=== PATIENT | male | born 1945 | race Caucasian/White ===

== ENCOUNTER 2024-06-13 22:12 | Emergency (ER) | payer MEDICARE, BC, SELFPAY ==
[2024-06-13 22:20] VITALS: BP 181/92; PULSE 74; RESP 19; TEMP 36.8; O2SAT 96; BMI 31.6
--- NOTE | 2024-06-13 22:51 | XR_ITS ---
Examination: Foot, right, 3 views Technique: AP, oblique, lateral views foot, 3 views Date and time of exam: June 13, 2024 11:02 PM INDICATIONS: Patient fell today with injury to the foot, laceration to the left foot FINDINGS: Prominent osteopenia Soft tissue vascular calcification No acute fracture No foreign body Moderate narrowing first metatarsal phalangeal joint Significant osteoarthritis tarsometatarsal joints IMPRESSION: No opaque foreign body
--- NOTE | 2024-06-13 22:52 | PD.EDRME ---
Rapid Medical Screening Exam RME Arrival date/time: 06/13/24 22:12 79-year-old male past medical history of hypertension, hyperlipidemia, thyroid disease, neuropathy and peripheral vascular disease presents emergency department complaining of laceration to right foot after suffering ground-level fall due to slipping on tile. Patient is unsure if he is up-to-date with tetanus vaccine. Chief Complaint: Wound/Laceration Time Seen by Provider: 06/13/24 22:30 Vital signs: Vital Signs Temperature 98.3 F 06/13/24 22:20 Pulse Rate 74 06/13/24 22:20 Respiratory Rate 19 06/13/24 22:20 Blood Pressure 181/92 H 06/13/24 22:20 Pulse Oximetry (%) 96 06/13/24 22:20 Oxygen Delivery Method Room Air 06/13/24 22:20 Vital signs reviewed by provider: Yes
[2024-06-13] MEDS: DIPHTH,PERTUSS(ACELL),TET VAC 0.5 ML VIAL IMi (23:44)
[2024-06-13] MEDS: LIDOCAINE HCL 1% 20 ML VIAL INFL (23:45)
--- NOTE | 2024-06-14 00:35 | EDNOTE_ITS ---
ED Wound/Laceration-RME/HPI General Chief Complaint: Wound/Laceration Stated Complaint: Fall, right foot laceration Time Seen by Provider: 06/13/24 22:30 Source: patient Arrival date/time: 06/13/24 22:12 79-year-old male past medical history of hypertension, hyperlipidemia, thyroid disease, neuropathy and peripheral vascular disease presents emergency department complaining of laceration to right foot after suffering ground-level fall due to slipping on tile. Patient is unsure if he is up-to-date with tetanus vaccine. Mode of arrival: wheelchair Limitations: physical limitation RME / HPI RME / HPI narrative: 06/13/24 22:12 79-year-old male past medical history of hypertension, hyperlipidemia, thyroid disease, neuropathy and peripheral vascular disease presents emergency department complaining of laceration to right foot after suffering ground-level fall due to slipping on tile. Patient is unsure if he is up-to-date with tetanus vaccine. Related Data Home Medications ?Medication ?Instructions ?Recorded ?Confirmed amlodipine 5 mg-olmesartan 20 mg 1 tab PO QDAY 1 07/09/21 tablet calcitriol 0.25 mcg capsule 0.25 mcg PO QDAY 08/27/20 07/09/21 levothyroxine 150 mcg tablet 150 mcg PO DAILY 08/27/20 07/09/21 (Synthroid) tamsulosin 0.4 mg capsule 0.4 mg PO DAILY 08/27/2007/01 rosuvastatin 5 mg tablet 5 mg PO QDAY 07/07/21 Previous Rx's ?Medication ?Instructions ?Recorded cephalexin 500 mg capsule 500 mg PO BID 5 days #10 cap s 06/14/24 Allergies Allergy/AdvReac Type Severity Reaction Status Date / Time No Known Allergies Allergy Unverified 07/09/21 07:34 Review of Systems Review of Systems Systems Reviewed: All systems reviewed, normal except as documented Constitutional Constitutional: Reports system reviewed and no additional complaints, except as documented, Denies body ache(s), Denies chills and Denies fever(s) Eyes Eyes: Reports system reviewed and no additional complaints, except as documented and Denies change in vision ENT Ears, Nose, Mouth, and Throat: Reports system reviewed and no additional complaints, except as documented, Denies disequilibrium, Denies dizziness, Denies sore throat and Denies vertigo Cardiovascular Cardiovascular: Reports system reviewed and no additional complaints, except as documented, Denies chest pain and Denies dyspnea Respiratory Respiratory: Reports system reviewed and no additional complaints, except as documented, Denies chest congestion, Denies cough and Denies dyspnea Gastrointestinal Gastrointestinal: Reports system reviewed and no additional complaints, except as documented, Denies abdominal pain, Denies nausea and Denies vomiting Musculoskeletal Musculoskeletal: Reports system reviewed and no additional complaints, except as documented, Denies abnormal gait and Denies arthralgias Integumentary/Breasts Skin/Breast: Reports system reviewed and no additional complaints, except as documented, Denies erythema, Denies rash and Reports wounds Neurologic Neurologic: Reports system reviewed and no additional complaints, except as documented, Denies abnormal gait, Denies disequilibrium, Denies dizziness and Denies vertigo Past Medical History Past Medical History NEUROLOGIC: Positive Neurological Disorders; Negative Seizures CARDIAC: Positive Cardiac Disorders, Hypercholesterolemia and Hypertension; Negative Congestive Heart Failure RESPIRATORY: Negative Chronic Obstructive Pulmonary Disease (COPD) GASTROINTESTINAL: Positive Gastrointestinal Disorders and Hemorrhoids (req surgery) GENITOURINARY: Positive Prostate Cancer; Negative Renal Disease ENDOCRINE: Negative Endocrine Disorders, Diabetes Mellitus Type 1 or Diabetes Mellitus Type 2 OTHER HISTORY: Positive Prostate Cancer; Negative Blood Transfusions, Blood Transfusion Reaction or Anesthesia Reactions Social History SMOKING STATUS: Never smoker ED Exam General Limitations: Present physical limitation General appearance: Present alert and in no apparent distress Head Head exam: Present atraumatic Eye Eye exam: Present normal appearance, PERRL and EOMI ENT ENT exam: Present normal exam, normal oropharynx and mucous membranes moist Neck Neck exam: Present normal inspection, full ROM and trachea midline Chest Chest inspection: Present normal inspection and symmetric chest wall rise Respiratory Respiratory exam: Present normal lung sounds bilaterally Cardiovascular Cardiovascular exam: Present regular rate, normal rhythm and normal heart sounds Abdominal Exam Abdominal exam: Present soft and normal bowel sounds Extremities Exam Extremities exam: Present normal inspection and full ROM Expanded Lower Extremity Exam Top foot image: 2 1. Laceration between right second and third digit. Bottom foot image: 2 1. Laceration between second and third right digits Back Exam Back exam: Present normal inspection and full ROM Neurological Exam Neurological exam: Present alert, oriented X3 and CN II-XII intact Psychiatric Psychiatric exam: Present normal affect and normal mood Skin Skin exam: Present warm, dry, intact and normal color Course Quality Measures none Orders Category Date Time Status Set Up Suture Tray STAT Care 06/13/24 22:51 Completed Wound Care [Wound Care] NOW Care 06/13/24 22:51 Completed XR foot comp RT min 3V Stat Exams 06/13/24 22:51 Completed Lidocaine 1% 20 ml [Xylocaine 1% 20 ML] Med 06/13/24 22:51 Discontinued 20 ml INFL X1 ONE Tet,Diphth,Pertuss(Acell)-Tdap [Boostrix Vacc] Med 06/13/24 22:51 Discontinued 0.5 ml IMI .ONCE ONE Vital Signs Vital signs: Vital Signs Temperature 98.3 F 06/13/24 22:20 Pulse Rate 74 06/13/24 22:20 Respiratory Rate 19 06/13/24 22:20 Blood Pressure 181/92 H 06/13/24 22:20 Pulse Oximetry (%) 96 06/13/24 22:20 Oxygen Delivery Method Room Air 06/13/24 22:20 96% room air within normal limit Procedures -ED Laceration Laceration 1: Site: other (Right foot) Side (If applicable): right Size (cm): 4 Description: linear Depth: simple, single layer Local Anesthetic: lidocaine 1% Amount of anesthesia used (mL): 2 Pre-repair: wound explored and irrigated extensively Skin layer closed with: nylon Size (cm): 4-0 Number of sutures: 6 Technique: simple, interrupted Wound / Laceration MDM Narrative MDM Narrative:: 79-year-old male past medical history of hypertension, hyperlipidemia, thyroid disease, neuropathy and peripheral vascular disease presents emergency department complaining of laceration to right foot after suffering ground-level fall due to slipping on tile. Patient is unsure if he is up-to-date with tetanus vaccine. Laceration to right foot between second and third digit involving plantar and dorsal part of foot. Approximately 4 cm long wound was irrigated with copious amounts of normal saline verbal consent obtained and using 1% lidocaine as local anesthetic 6 simple interrupted sutures using 4-0 Ethilon were used to approximate wound. Patient tolerated well. None ligamentous injury. Affected extremity is neurovascularly intact. Patient will be treated with antibiotics due to peripheral vascular disease and risk of poor circulation and infection. instructed to have daily foot checks for any signs of infection and instructed to keep lower extremity clean dry and intact. Patient instructed to follow-up with primary care provider and return to emergency department for any worsening symptoms or as needed. Patient data External records reviewed:: [facility] previous records Clinical information provided by:: patient and spouse Social determinants that could affect healthcare access:: none Patient has the following chronic illnesses:: See chart How is presenting disease/condition affected by chronic disease/condition?: u neffected by Evaluation data The following diagnostics were reviewed and interpreted by me:: radiology exam(s) Lab and/or radiology exams considered but not ordered:: Ordered Interpretation Summary: Interpreted by me Medications / Prescriptions Medications or Prescriptions considered but not ordered:: Ordered Medication administrations:: Medication Administration History Discontinued Medications Diphtheria/Tetanus/Acell Pertussis (Diphth,Pertuss(Acell),Tet Vac 0.5 Ml Vial) 0.5 ml IMi .ONCE ONE Stop: 06/13/24 22:52 Last Admin: 06/13/24 23:44 Dose: 0.5 ml Documented By: STEPHAN Lidocaine HCl (Lidocaine Hcl 1% 20 Ml Vial) 20 ml INFL X1 ONE Stop: 06/13/24 22:52 Last Admin: 06/13/24 23:45 Dose: 20 ml Documented By: OA Given Consultations Consultation(s) initiated? (list below): No Diagnosis Wound Differential Diagnosis: laceration Most likely diagnosis given after review of the tests above:: Laceration of right foot Admission Indicated Admission indicated?: not indicated Admission Request Was there a request for admission?: No Disposition Plan Disposition Plan: Discharge Discharge Attestation Discharge Attestation: The patient and all family members were given an opportunity to ask questions and understood the discharge instructions. Discharge instructions specifically effects, indications for sooner follow up or return to the emergency department, and the expected course of current diagnosis. Patient condition: Stable Discharge Plan Plan Patient Disposition: HOME (Self Care) Disposition Comment: Stable Prescriptions/Referrals Prescriptions/Med Rec: New cephalexin 500 mg capsule 500 mg PO BID 5 Days Qty: 10 0RF No Action tamsulosin 0.4 mg capsule 0.4 mg PO DAILY levothyroxine [Synthroid] 150 mcg tablet 150 mcg PO DAILY amlodipine-olmesartan 5-20 mg Tablet 1 tab PO QDAY calcitriol 0.25 mcg Capsule 0.25 mcg PO QDAY rosuvastatin 5 mg Tablet 5 mg PO QDAY Problem List Clinical Impression: Laceration of right foot Patient/Caregiver Discharge Instructions Education Materials: ED Laceration: All Closures Additional Instructions: Keep dressing on for the first 24 hours due to bleeding. After 24 hours no more bleeding may wash with warm water and soap pat dry keep clean and dry. Stay off the foot is much as possible. Monitor for any signs of infection with daily wound check. Take antibiotic as prescribed. Follow-up with primary care provider in 2 to 3 days. Return to emergency department or primary care provider's office in 7 to 10 days for suture removal. Return to emergency department for any signs of infection worsening symptoms or as needed. Print Language: Macedonian Stand Alone Forms: Quin Award Info., Patient Portal Info Letter PA/JACKET CHANGER Supervising Physician PA/JACKET CHANGER Supervising Physician: Dr. Vidales
== END 2024-06-14 01:20 | disposition home or self-care (01) ==
PROVIDERS: Emergency Provider Emergency Medicine; PCP Internal Medicine
DX: S91.311A Laceration without foreign body, right foot, initial encounter (principal); W01.0XXA Fall on same level from slipping, tripping and stumbling without subsequent striking against object, initial encounter; I10 Essential (primary) hypertension; E78.5 Hyperlipidemia, unspecified; Z23 Encounter for immunization
CPT/HCPCS: 12002; 73630; 90471; 90715; 99283; J3490

== ENCOUNTER → 2024-06-20 | Outpatient (CLI) | payer MEDICARE, BC, SELFPAY ==
[2024-06-20 11:05] LABS: Basophils % (Auto) 0 % (0-2.5); Eosinophils # (Auto) 0.1 Thou/mm3 (0.0-0.5); Eosinophils % (Auto) 2 % (0-10); Hematocrit 45.6 % (41.0-53.0); Hemoglobin 15.4 g/dL (13.5-16.0); Immature Granulocytes % (Auto) 0 % (0-0); Immature Granulocytes Auto 0.01 Thou/mm3 (0.00-0.00); Lymphocytes # (Auto) 1.8 Thou/mm3 (1.0-4.8); Lymphocytes % (Auto) 27 % (10-50); Mean Corpuscular HGB Conc 33.8 g/dl (31.0-37.0); Mean Corpuscular Hemoglobin 32.7 pg (25.0-35.0); Mean Corpuscular Volume 97 fL (80-100); Monocytes # (Auto) 0.6 Thou/mm3 (0.0-0.8); Monocytes % (Auto) 9 % (0-12); Neutrophils # (Auto) 4.1 Thou/mm3 (1.8-7.7); Neutrophils % (Auto) 62 % (37-80); Nucleated Red Blood Cell % 0 /100 WBC (0); Platelet Count 260 Thou/mm3 (140-440); RDW Standard Deviation 44.4 fL (35.1-43.9); Red Blood Count 4.71 Miln/mm3 (4.50-5.90); White Blood Count 6.7 Thou/mm3 (3.8-10.6)
[2024-06-20 11:16] LABS: Collection Type, Urine Clean Catch; RBC,Urine 0 /hpf (0-3); Squamous Epithelial Cell,Urine 0 /hpf (0-5)
[2024-06-20 11:28] LABS: Parathyroid Hormone Intact 3.4 pg/ml (18.5-88.0)
[2024-06-20 11:29] LABS: Alanine Aminotransferase 18 U/L (10-49); Albumin, Serum 4.3 gm/dL (3.4-4.8); Albumin/Globulin Ratio 1.9 (1.2-2.2); Alkaline Phosphatase 77 U/L (46-116); Anion Gap 7 (7-16); Aspartate Amino Transferase 23 U/L (0-34); BUN/Creatinine Ratio 22 Ratio (12-20); Bilirubin,Total 1.1 mg/dL (0.3-1.2); Blood Urea Nitrogen 26 mg/dL (9-23); Calcium 9.7 mg/dL (8.3-10.6); Calcium (Corrected) 9.7 mg/dL (8.5-10.1); Carbon Dioxide 30.4 mMol/L (20.0-31.0); Cardiac Risk Estimate 3.2 RATIO (4.0-6.7); Chloride 104 mMol/L (98-107); Cholesterol 179 mg/dL (132-200); Creatinine (Component) 1.2 mg/dL (0.6-1.3); Free T4 (Free Thyroxine) 1.71 ng/dL (0.89-1.76); Globulin 2.3 gm/dL (2.3-3.5); Glucose 96 mg/dL (74-106); HDL Cholesterol 56 mg/dL (40-60); LDL Cholesterol,Calculated 87 mg/dL (0-130); Osmolality,Calculated 285 (275-295); Potassium 4.4 mMol/L (3.4-5.1); Sodium 141 mMol/L (136-145); Thyroid Stimulating Hormone 2.82 uIU/mL (0.55-4.78); Total Protein 6.6 gm/dL (5.7-8.2); Triglycerides 181 mg/dL (30-150); eGFR > 60 See Note
[2024-06-20 11:49] LABS: Bilirubin,Urine Negative (Negative); Blood,Urine Negative (Negative); Clarity,Urine Clear (Clear/Hazy); Color,Urine Lt-Yellow (Lt Yel-Yel); Glucose, Urine Negative (Negative); Ketones,Urine Negative (Negative); Leukocyte Esterase,Urine Negative (Negative); Nitrite,Urine Negative (Negative); PH,Urine 6.5 (5.0-7.0); Protein,Urine Negative (Neg - Trace); Specific Gravity,Urine 1.014 (1.001-1.035); Urobilinogen,Urine Negative mg/dL (0.0-1.0); WBC,Urine < 1 /hpf (0-5)
== END | disposition home or self-care (01) ==
LOC: COPL 10:19
PROVIDERS: PCP Internal Medicine; Referring Provider Internal Medicine Cardiovascular Disease; Visit Provider Internal Medicine
DX: E78.5 Hyperlipidemia, unspecified (principal); I10 Essential (primary) hypertension; E20.9 Hypoparathyroidism, unspecified
CPT/HCPCS: 36415; 80053; 80061; 81001; 83970; 84439; 84443; 85025

== ENCOUNTER → 2024-07-05 | Outpatient (CLI) | payer MEDICARE, BC, SELFPAY | END | disposition home or self-care (01) | PROVIDERS: PCP Internal Medicine; Referring Provider Internal Medicine; Visit Provider Student in an Organized Health Care Education/Training Program | DX: S91.311A Laceration without foreign body, right foot, initial encounter (principal); X58.XXXA Exposure to other specified factors, initial encounter; I73.9 Peripheral vascular disease, unspecified; F10.20 Alcohol dependence, uncomplicated; I10 Essential (primary) hypertension; N40.0 Benign prostatic hyperplasia without lower urinary tract symptoms; C61 Malignant neoplasm of prostate; C44.91 Basal cell carcinoma of skin, unspecified; G62.9 Polyneuropathy, unspecified | CPT/HCPCS: 99214; A9270; G0463 ==

== ENCOUNTER → 2024-07-17 | Outpatient (CLI) | payer MEDICARE, BC, SELFPAY | END | disposition home or self-care (01) | LOC: SWHD 10:05 | PROVIDERS: PCP Internal Medicine; Referring Provider Internal Medicine; Visit Provider Surgery | DX: S91.311A Laceration without foreign body, right foot, initial encounter (principal); X58.XXXA Exposure to other specified factors, initial encounter; I73.9 Peripheral vascular disease, unspecified; F10.20 Alcohol dependence, uncomplicated; I10 Essential (primary) hypertension; N40.0 Benign prostatic hyperplasia without lower urinary tract symptoms; C61 Malignant neoplasm of prostate; C44.91 Basal cell carcinoma of skin, unspecified; G92.9 Unspecified toxic encephalopathy | CPT/HCPCS: 99212; G0463 ==

== ENCOUNTER 2024-12-09 13:54 | Emergency (ER) | payer MEDICARE, BC, SELFPAY ==
--- NOTE | 2024-12-09 14:02 | EKG_ITS ---
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1945 Requested By: Mikal Leggett (ELIA) Order Number: [id number] Reading MD: Mikla Leggett (PROFESSIONAL FIGHTER) Measurements Intervals [place] Rate: 45 P: 36 CO: 252 QRS: -36 QRSD: 102 T: 47 QT: 484 QTc: 423 Interpretive Statements SINUS BRADYCARDIA WITH FIRST DEGREE AV BLOCK LEFT AXIS DEVIATION [QRS AXIS < -30] POSSIBLE ANTERIOR MYOCARDIAL INFARCTION , OF INDETERMINATE AGE [30 ms Q WAVE IN V3/V4, OR R < 0.2 mV IN V4] Compared to ECG 07/09/2021 07:17:36 First degree AV block now present Myocardial infarct finding now present Sinus rhythm no longer present /store/S0/[id number].pdf
[2024-12-09 14:04] VITALS: BP 156/93; PULSE 46; RESP 16; TEMP 36.8; O2SAT 93
[2024-12-09 14:05] VITALS: BMI 31.4
--- NOTE | 2024-12-09 14:12 | XR_ITS ---
Examination: AP chest single view. TECHNIQUE: AP portable semiupright chest single view. Date and time: December 09, 2024, 1503 hours, comparison March 11, 2016. INDICATIONS: Chest pain today. FINDINGS: Mild prominence left ventricle. Aortic cage. Moderate vascular congestion. No lumbar pneumonia or shivani pulmonary edema IMPRESSION: Moderate vascular congestion.
[2024-12-09 14:21] VITALS: PULSE 45
[2024-12-09 14:35] LABS: Basophils # (Auto) 0.0 Thou/mm3 (0.0-0.2); Basophils % (Auto) 0 % (0-2.5); Eosinophils # (Auto) 0.1 Thou/mm3 (0.0-0.5); Eosinophils % (Auto) 1 % (0-10); Hematocrit 43.0 % (41.0-53.0); Hemoglobin 14.3 g/dL (13.5-16.0); Immature Granulocytes Auto 0.03 Thou/mm3 (0.00-0.00); Lymphocytes # (Auto) 1.8 Thou/mm3 (1.0-4.8); Lymphocytes % (Auto) 20 % (10-50); Mean Corpuscular HGB Conc 33.3 g/dl (31.0-37.0); Mean Corpuscular Hemoglobin 32.2 pg (25.0-35.0); Mean Corpuscular Volume 97 fL (80-100); Monocytes # (Auto) 0.8 Thou/mm3 (0.0-0.8); Monocytes % (Auto) 9 % (0-12); Neutrophils # (Auto) 6.1 Thou/mm3 (1.8-7.7); Neutrophils % (Auto) 70 % (37-80); Nucleated Red Blood Cell # 0.00 Thou/mm3 (0.00-0.00); Nucleated Red Blood Cell % 0 /100 WBC (0); Platelet Count 268 Thou/mm3 (140-440); RDW Standard Deviation 46.1 fL (35.1-43.9); Red Blood Count 4.44 Miln/mm3 (4.50-5.90); White Blood Count 8.8 Thou/mm3 (3.8-10.6)
--- NOTE | 2024-12-09 14:41 | PD.EDDIZZY ---
ED Dizzyness RME/HPI General Chief Complaint: Dizziness Stated Complaint: LOW HR Time Seen by Provider: 12/09/24 14:10 Arrival date/time: 12/09/24 13:54 RME / HPI RME / HPI Narrative: 79-year-old male patient with significant history of hypertension prostate CA, status post TAVR came in for evaluation regarding dizziness and not feeling well. Patient just finished his treadmill and walking in the gym when suddenly developed sudden onset of not feeling well dizziness severity moderate. He checked his blood pressure and it was within normal limits however his heart rate was on the low 40s. Patient denies any chest pain. Patient denies any other complaints. He is taking amlodipine although Marcet Valdivia with good compliance. He is also taking 81 mg aspirin daily. Related Data Home Medications ?Medication ?Instructions ?Recorded ?Confirmed amlodipine 5 mg-olmesartan 20 mg 1 tab PO QDAY 08/27/20 07/09/21 tablet calcitriol 0.25 mcg capsule 0.25 mcg PO QDAY 08/27/20 07/09/21 levothyroxine 150 mcg tablet 150 mcg PO DAILY 08/27/20 07/09/21 (Synthroid) tamsulosin 0.4 mg capsule 0.4 mg PO DAILY 08/27/20 07/09/21 rosuvastatin 5 mg tablet 5 mg PO QDAY 07/07/21 07/09/21 Allergies Allergy/AdvReac Type Severity Reaction Status Date / Time No Known Allergies Allergy Unverified 12/09/24 13:57 Review of Systems Review of Systems Narrative Review of Systems: Review of system reviewed and within normal limits except mentioned in HPI ED Exam Narrative Physical exam: VITAL SIGNS: Reviewed. GENERAL APPEARANCE: Alert and interactive, follows commands, no acute distress, HEAD AND FACE: Non-traumatic. ENT: PERRL, pink conjunctivitis, eyelid no trauma, Mucous membrane moist. NECK: Supple, nontender, no nuchal rigidity. CHEST: No tenderness, no crepitus, no paradoxical movement, no retractions. LUNGS: Clear, well ventilated, symmetric, no rales, no wheezing, no ronchi, no stridor, good breath sounds bilaterally. HEART: Bradycardia, no murmur, no gallops. ABDOMEN: Soft, positive bowel sounds, nondistended, no guarding, nontender, no rebound, no masses, RECTAL: Deferred. GENITAL: Deferred. NEUROLOGICAL: Gross motor function intact sensory function intact, Appropriate for age. MUSCULOSKELETAL: low back nontender, full range of motion. EXTREMITIES: Nontender, full range of motion. SKIN: Color pink, dry, no rash, no lacerations, no abrasions, no contusions. LYMPHATICS: Deferred. Course Quality Measures none Orders Category Date Time Status Animal Assistant NOW Care 12/09/24 14:12 Completed EKG (ED ONLY) *Do not use* NOW Care 12/09/24 14:02 Completed EKG (ED ONLY) *Do not use* NOW Care 12/09/24 15:42 Active Insert IV NOW Care 12/09/24 14:29 Completed EKG (ED Only) Stat Exams 12/09/24 14:02 Draft EKG (ED Only) Stat Exams 12/09/24 15:42 Stop Req XR chest 1V portable Stat Exams 12/09/24 14:12 Taken B-Type Natriuretic Peptide Stat Lab 12/09/24 14:26 Completed CBC Stat Lab 12/09/24 14:26 Completed Comprehensive Metabolic Panel Stat Lab 12/09/24 14:26 Completed Magnesium Stat Lab 12/09/24 14:26 Completed Partial Thromboplastin Time Stat Lab 12/09/24 14:26 Completed Prothrombin Time with INR Stat Lab 12/09/24 14:26 Completed Troponin I Stat Lab 12/09/24 14:26 Completed UA, C/S IF [Urinalysis, C/S if Indicated] Stat Lab 12/09/24 15:42 Ordered Morphine Inj Med 12/09/24 15:42 Discontinued 4 mg IVP X1 ONE Ondansetron Inj [Zofran Inj] Med 12/09/24 15:42 Discontinued 4 mg IVP X1 ONE Ringers Lactated 1000 ml [Lactated Ringers] 1,000 ml Med 12/09/24 15:43 Discontinued IV 999 mls/hr Vital Signs Vital signs: Vital Signs Temperature 98.2 F 12/09/24 14:04 Pulse Rate 46 L 12/09/24 14:04 Respiratory Rate 16 12/09/24 14:04 Blood Pressure 156/93 H 12/09/24 14:04 Pulse Oximetry (%) 93 L 12/09/24 14:04 Oxygen Delivery Method Room Air 12/09/24 14:04 Dizziness MDM Narrative MDM Narrative:: 79-year-old male patient with significant history of hypertension prostate CA, status post TAVR came in for evaluation regarding dizziness and not feeling well. Patient just finished his treadmill and walking in the gym when suddenly developed sudden onset of not feeling well dizziness severity moderate. He checked his blood pressure and it was within normal limits however his heart rate was on the low 40s. Patient denies any chest pain. Patient denies any other complaints. He is taking amlodipine although Marcet Valdivia with good compliance. He is also taking 81 mg aspirin daily. EKG showed sinus bradycardia, ventricular to 45 bpm, and ST segment elevation depression noted. Patient's laboratory workup came back with no metabolic or infectious process noted. Troponin is normal. I spoke with Dr. Epps several times discussed this case, initially were planning to admit the patient however prior to final decision, patient's heart rate was noted to be on the mid 70s, and patient is not having any symptoms. I talked to him again and Dr. Epps and the patient talking in the phone and decided to discharge the patient. Plan of care discussed with patient, who agrees to be discharged and return to emergency room for recurrence of symptoms. Patient data External records reviewed:: None Clinical information provided by:: patient Social determinants that could affect healthcare access:: none Patient has the following chronic illnesses:: Hypertension, status post TAVR How is presenting disease/condition affected by chronic disease/condition?: exacerbated by Evaluation data The following diagnostics were reviewed and interpreted by me:: lab results, radiology exam(s) and EKG tracing(s) Lab and/or radiology exams considered but not ordered:: None Interpretation Summary: See results MDM Medications / Prescriptions Medications or Prescriptions considered but not ordered:: None Medication administrations:: Medication Administration History Discontinued Medications Lactated Ringer's (Lactated Ringers) 1,000 mls @ 999 mls/hr IV .Q1H1M ONE Stop: 12/09/24 16:43 Morphine Sulfate (Morphine Sulf Inj 10 Mg/Ml Vial) 4 mg IVP X1 ONE Stop: 12/09/24 15:43 Last Admin: 12/09/24 15:50 Dose: Not Given Documented By: CG Non-Admin Reason: Cancelled by Provider Ondansetron HCl (Ondansetron Inj 2 Mg/Ml Inj 2 Ml) 4 mg IVP X1 ONE; Protocol Stop: 12/09/24 15:43 Last Admin: 12/09/24 15:50 Dose: Not Given Documented By: CG Non-Admin Reason: Cancelled by Provider None Consultations Consultation(s) initiated? (list below): No Diagnosis Dizziness Differential Diagnosis: orthostatic hypotension Most likely diagnosis given after review of the tests above:: Bradycardia, resolved Admission Indicated Admission indicated?: not indicated Admission Request Was there a request for admission?: No Disposition Plan Disposition Plan: Discharge Discharge Attestation Discharge Attestation: The patient was given an opportunity to ask questions and understood the discharge instructions. Discharge instructions specifically effects, indications for sooner follow up or return to the emergency department, and the expected course of current diagnosis. Patient condition: Stable Discharge Plan Plan Patient Disposition: HOME (Self Care) Discharge Disposition comment: Stable Prescriptions/Referrals Prescriptions/Med Rec: No Action tamsulosin 0.4 mg capsule 0.4 mg PO DAILY levothyroxine [Synthroid] 150 mcg tablet 150 mcg PO DAILY amlodipine-olmesartan 5-20 mg Tablet 1 tab PO QDAY calcitriol 0.25 mcg Capsule 0.25 mcg PO QDAY rosuvastatin 5 mg Tablet 5 mg PO QDAY Referrals: Sari Shipley MD [Primary Care Provider] - In 1 week Problem List Clinical Impression: Bradycardia Patient/Caregiver Discharge Instructions Discharge Activity: activity as tolerated Education Materials: ED Bradycardia Additional Instructions: Thank you for the opportunity for serving you today. You are stable for discharged . You are advised to: Follow-up with your senior writer this Wednesday Return to ED for worsening of symptoms, for recurrence of symptoms Increase oral fluids Print Language: Slovak Stand Alone Forms: Quin Award Info., Patient Portal Info Letter HAYLEY/SHELTON Supervising Physician HAYLEY/SHELTON Supervising Physician: MD junior
[2024-12-09 14:43] VITALS: RESP 17; O2SAT 93
[2024-12-09 14:56] LABS: B-Type Natriuretic Peptide 190 pg/mL (0-100)
[2024-12-09 14:57] LABS: Alanine Aminotransferase 61 U/L (10-49); Albumin, Serum 4.3 gm/dL (3.4-4.8); Albumin/Globulin Ratio 2.0 (1.2-2.2); Alkaline Phosphatase 85 U/L (46-116); Anion Gap 10 (7-16); Aspartate Amino Transferase 89 U/L (0-34); BUN/Creatinine Ratio 21 Ratio (12-20); Bilirubin,Total 0.5 mg/dL (0.3-1.2); Blood Urea Nitrogen 25 mg/dL (9-23); Calcium 8.7 mg/dL (8.3-10.6); Calcium (Corrected) 8.7 mg/dL (8.5-10.1); Carbon Dioxide 24.9 mMol/L (20.0-31.0); Chloride 109 mMol/L (98-107); Creatinine (Component) 1.2 mg/dL (0.6-1.3); Estimated Creatinine Clearance 65.4 mL/min (>60); Globulin 2.2 gm/dL (2.3-3.5); Glucose 128 mg/dL (74-106); Magnesium 2.0 mg/dL (1.6-2.6); Osmolality,Calculated 293 (275-295); Potassium 3.7 mMol/L (3.4-5.1); Sodium 144 mMol/L (136-145); Total Protein 6.5 gm/dL (5.7-8.2); Troponin I < 0.020 ng/mL (0.0-0.045); eGFR > 60 See Note
[2024-12-09 14:58] LABS: INR 1.0 (0.9-1.3); Partial Thromboplastin Time 27.8 Seconds (22.0-36.0); Prothrombin Time 11.1 Seconds (9.0-12.2)
[2024-12-09 15:00] VITALS: BP 141/65; PULSE 51; RESP 17; O2SAT 93
[2024-12-09 15:30] VITALS: BP 153/78; PULSE 73; RESP 20; O2SAT 93
--- NOTE | 2024-12-09 15:42 | EKG_ITS ---
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
[2024-12-09 16:05] VITALS: PULSE 75; RESP 18; TEMP 36.9; O2SAT 95
--- NOTE | 2024-12-10 15:30 | ESCONSULT_ITS ---
RE: EVY CARPENTER : 1945 DATE OF CONSULTATION: 12/09/2024 CONSULTING PHYSICIAN: Dr. Moser and Dr. Sari Shipley. REASON FOR CONSULTATION: Evaluation of bradycardia, complete heart block. CHIEF COMPLAINT: Dizziness, severe bradycardia with a rate of 40 beats per minute. HISTORY OF PRESENT ILLNESS: The patient is very well known to me. He is a 79-year-old male with a history of hypertension, longstanding aortic stenosis who underwent aortic valve replacement surgery, peripheral arterial occlusive disease, and TAVR procedure in 2021. He was doing well until today. The patient went to the emergency room with bradycardia, heart rate was 40, but he was not very symptomatic, weak and dizzy, but he felt better. Heart rate improved to 80. Initial EKG appeared with sinus bradycardia, but he came back to the hospital again with the same symptoms. He appears to be in complete heart block with a rate of 40 beats per minute with AV dissociation, third-degree AV block, hence admitted to the hospital for possible pacemaker implantation. There are no reversible causes for the bradycardia. The patient is on an olmesartan and amlodipine combination, 40 of olmesartan, 10 of amlodipine, and also on Synthroid for hypothyroidism. Otherwise, he has had no other medication, no beta-blockers or calcium channel blockers other than amlodipine. The patient has continued to remain in complete heart block, hence we will observe the patient overnight for possible pacemaker implantation. ALLERGIES: NONE. MEDICATIONS: Please see the list. He is on: 1. Levothyroxine 150 mcg daily. 2. Olmesartan amlodipine combination 40 and 10 once a day. 3. Low dose aspirin daily. PAST MEDICAL HISTORY: Hypertension, aortic stenosis underwent transcutaneous aortic valve replacement (TAVR) in 2021 at [facility] with mild residual aortic regurgitation, the patient also has hypothyroidism, peripheral artery disease, intermittent claudication, and hypercholesterolemia. SOCIAL HISTORY: The patient is and lives with . His who recently had hip replacement surgery. FAMILY HISTORY: Noncontributory. REVIEW OF SYSTEMS: Cardiovascular: Dizziness and weakness, symptomatic bradycardia. Gastrointestinal: No nausea or vomiting. Genitourinary: No frequency or dysuria. PHYSICAL EXAMINATION: GENERAL: He is a well-nourished, pleasant, obese male, awake and alert, in no acute distress. VITAL SIGNS: Blood pressure is 130/60, pulse rate is 40, respirations 18, temperature is normal. HEENT: Head is atraumatic and normocephalic. Eyes are normal. ENT is normal. NECK: Supple. No JVD. Carotid pulse is felt with no bruit. CHEST: Symmetrical: LUNGS: Clear. No rales or rhonchi. HEART: S1 and S2 are regular. S4 gallop heard. No murmurs. ABDOMEN: Obese, thin and soft. No organomegaly. EXTREMITIES: No edema. GENITOURINARY AND RECTAL: Not performed. NEUROLOGIC: Alert and oriented x3. No focal neurologic deficits. DIAGNOSTIC DATA: EKG showed evidence of a third-degree AV block, AV dissociation with complete heart block, heart rate of 40 beats per minute. IMPRESSION: 1. Symptomatic bradycardia secondary to third-degree heart block. 2. Third-degree atrioventricular block, status post transcutaneous aortic valve replacement surgery in 2021. 3. Status post aortic valve replacement surgery, TAVR (transcutaneous aortic valve replacement) in 2021. 4. Hypothyroidism. 5. Peripheral arterial occlusive disease. 6. Hypercholesterolemia. RECOMMENDATIONS: The patient will be watched till tomorrow if complete heart block persists, we will schedule the patient for permanent pacemaker implantation on 12/10/2024. DT: 13:47:24 TT: 15:29:00 Ref: [id number] - TID: [id number] [facility]
== END 2024-12-09 16:05 | disposition home or self-care (01) ==
PROVIDERS: Nurse Practitioner Primary Care; Emergency Provider Family Medicine; PCP Internal Medicine
DX: R00.1 Bradycardia, unspecified (principal); R07.9 Chest pain, unspecified; I44.0 Atrioventricular block, first degree; I10 Essential (primary) hypertension
CPT/HCPCS: 36415; 71045; 80053; 81001; 83690; 83735; 83880; 84484; 85025; 85610; 85730; 93005; 99283

== ENCOUNTER 2024-12-09 18:39 | Inpatient (IN) | payer MEDICARE, BC, SELFPAY ==
[2024-12-09 18:49] VITALS: BP 141/62; PULSE 46; RESP 18; TEMP 37.2; O2SAT 95; BMI 31.4
--- NOTE | 2024-12-09 19:06 | PD.EDADULT ---
ED General RME/HPI General Chief complaint: General Adult/Misc Complain Stated complaint: HR DROPPED AGAIN Time Seen by Provider: 12/09/24 19:03 Arrival date/time: 12/09/24 18:39 RME / HPI RME / HPI narrative: 79-year-old male patient with significant history of hypertension status post TVAR 3 years ago came in for evaluation regarding symptomatic bradycardia. Patient was seen here earlier workup was done all came back unremarkable initially patient's EKG showed sinus bradycardia on the 40s, was placed on the monitor, patient initially having a heart rate on the low 40s, later on went up to 73. Patient case was already discussed with maxillofacial prosthodontist, Dr. Epps, Dr. Epps talked to the patient and patient was deemed stable for discharge home due to heart rate going back to normal on the 70s. With the patient arrived home patient heart rate went down again to low 40s and complaining of not feeling well severity moderate. Patient denies any chest pain. Denies any vomiting. Related Data Home Medications ?Medication ?Instructions ?Recorded ?Confirmed amlodipine 5 mg-olmesartan 20 mg 1 tab PO QDAY 08/27/20 07/09/21 tablet calcitriol 0.25 mcg capsule 0.25 mcg PO QDAY 08/27/20 07/09/21 levothyroxine 150 mcg tablet 150 mcg PO DAILY 08/27/20 07/09/21 (Synthroid) tamsulosin 0.4 mg capsule 0.4 mg PO DAILY 08/27/20 07/09/21 rosuvastatin 5 mg tablet 5 mg PO QDAY 07/07/21 07/09/21 Allergies Allergy/AdvReac Type Severity Reaction Status Date / Time No Known Allergies Allergy Unverified 12/09/24 18:41 Review of Systems Review of Systems Narrative Review of Systems: Review of system reviewed and within normal limits except mentioned in HPI ED Exam Narrative Physical exam: VITAL SIGNS: Reviewed. GENERAL APPEARANCE: Alert and interactive, follows commands, no acute distress, HEAD AND FACE: Non-traumatic. ENT: PERRL, pink conjunctivitis, eyelid no trauma, Mucous membrane moist. NECK: Supple, nontender, no nuchal rigidity. CHEST: No tenderness, no crepitus, no paradoxical movement, no retractions. LUNGS: Clear, well ventilated, symmetric, no rales, no wheezing, no ronchi, no stridor, good breath sounds bilaterally. HEART: Bradycardia, no murmur, no gallops. ABDOMEN: Soft, positive bowel sounds, nondistended, no guarding, nontender, no rebound, no masses, RECTAL: Deferred. GENITAL: Deferred. NEUROLOGICAL: Gross motor function intact sensory function intact, Appropriate for age. MUSCULOSKELETAL: low back nontender, full range of motion. EXTREMITIES: Nontender, full range of motion. SKIN: Color pink, dry, no rash, no lacerations, no abrasions, no contusions. LYMPHATICS: Deferred. Course Quality Measures none Orders Category Date Time Status COVID-19 Screening Questionnaire NOW Care 12/09/24 19:42 Active Decision to Admit X1 Care 12/09/24 19:41 Active EKG (ED ONLY) *Do not use* NOW Care 12/09/24 19:06 Completed Consult to Cardiology Stat Cons 12/09/24 19:33 Ordered EKG (ED Only) Stat Exams 12/09/24 19:06 Ordered Vital Signs Vital signs: Vital Signs Temperature 98.9 F 12/09/24 18:49 Pulse Rate 46 L 12/09/24 18:49 Respiratory Rate 18 12/09/24 18:49 Blood Pressure 141/62 H 12/09/24 18:49 Pulse Oximetry (%) 95 12/09/24 18:49 Oxygen Delivery Method Room Air 12/09/24 18:49 Discharge Plan Plan Patient Disposition: Admit Acute Care w/in Hospital Discharge Disposition comment: Stable Prescriptions/Referrals Prescriptions/Med Rec: No Action tamsulosin 0.4 mg capsule 0.4 mg PO DAILY levothyroxine [Synthroid] 150 mcg tablet 150 mcg PO DAILY amlodipine-olmesartan 5-20 mg Tablet 1 tab PO QDAY calcitriol 0.25 mcg Capsule 0.25 mcg PO QDAY rosuvastatin 5 mg Tablet 5 mg PO QDAY Referrals: Sari Shipley MD [Primary Care Provider] - In 1 week Problem List Clinical Impression: Symptomatic bradycardia Patient/Caregiver Discharge Instructions Discharge Activity: activity as tolerated Print Language: Amharic Stand Alone Forms: Quin Award Info., Patient Portal Info Letter MDM Narrative MDM hospital course: 79-year-old male patient with significant history of hypertension status post TVAR 3 years ago came in for evaluation regarding symptomatic bradycardia. Patient was seen here earlier workup was done all came back unremarkable initially patient's EKG showed sinus bradycardia on the 40s, was placed on the monitor, patient initially having a heart rate on the low 40s, later on went up to 73. Patient case was already discussed with maxillofacial prosthodontist, Dr. Epps, Dr. Epps talked to the patient and patient was deemed stable for discharge home due to heart rate going back to normal on the 70s. With the patient arrived home patient heart rate went down again to low 40s and complaining of not feeling well severity moderate. Patient denies any chest pain. Denies any vomiting. EKG showed sinus bradycardia, ventricular rate of 48 bpm, no ST segment elevation or depression. Patient blood pressure was noted to be 141/68. Spoke with Dr. Epps again, who advised me to admit the patient for possible pacemaker placement. We informed Dr. Saez patient's PCP however patient needs to be admitted under hospitalist Clinical Information Provided by patient Labs/Rad/Tests considered, not Ordered Describe details: Repeat laboratory Send at this time it was done less than 4 hours ago. Consultations/Discussions re: Management Consult #1: Date/time: 12/09/24 7:47 pm Physician, specialty, service, details: Dr Epps, patient's maxillofacial prosthodontist, who recommends admission Diagnosis Differential diagnosis: Bradycardia, symptomatic bradycardia, dizziness Most likely dx, and/or detailed dx discussion: Symptomatic bradycardia Dispositon Disposition: Admit
[2024-12-09 19:53] VITALS: BP 129/77; PULSE 46; RESP 16; TEMP 36.8; O2SAT 95
--- NOTE | 2024-12-09 21:19 | PD.RESHP ---
Documentation for date of: 12/09/24 HPI History of Present Illness Chief complaint: Bradycardia History of present illness: 79 y/o M with PMHx significant for hypothyroidism s/p thyroidectomy, prostate cancer s/p radiation treatment, hypertension, TAVR presented to ED with chief complaint of bradycardia. Patient noticed increased fatigue with exertion while exercising, checked his blood pressure at home found to be approximately 100/50, noted heart rate was in the 40s. Patient briefly felt lightheaded, recovered. Follows with Dr. Epps for cardiology. At time of exam, patient feels well, hemodynamically stable. Denies lightheadedness, weakness, chest pain, shortness of breath, nausea, vomiting. ED COURSE: Labs significant for: AST 89, ALT 61. Imaging significant for: Chest x-ray showed mild vascular congestion. EKG showing sinus rhythm with AV block. PMH: Hypothyroidism s/p thyroidectomy, prostate cancer, hypertension PSH: TAVR, left hip replacement, thyroidectomy. SH: Denies tobacco or recreational drug use. Reports drinking half a glass of whiskey nightly. Allergies:?NKDA Medications: Amlodipine?olmesartan, Synthroid, calcitriol, aspirin Review of Systems Review of Systems Systems Reviewed: All systems reviewed, normal except as documented Past Medical History Past Medical History Comments PMH COMMENT: PMH: Hypothyroidism s/p thyroidectomy, prostate cancer, hypertension PSH: TAVR, left hip replacement, thyroidectomy. SH: Denies tobacco or recreational drug use. Reports drinking half a glass of whiskey nightly. Allergies:?NKDA Medications: Amlodipine?olmesartan, Synthroid, calcitriol, aspirin Exam Vital Signs Temp Pulse Resp BP Pulse Ox O2 Del Method 98.2 F 46 L 16 129/77 95 Room Air 12/09/24 19:53 12/09/24 19:53 12/09/24 19:53 12/09/24 19:53 12/09/24 19:53 12/09/24 19:53 Narrative Exam PE: Gen: Well-developed and well-nourished. HEENT: NCAT, PERRLA, EOMI, MMM, anicteric conjunctivae. CVS: normal S1 and S2. No M/R/G. Regular rhythm, bradycardia Resp: CTA B/L. No rhonchi, rales, crackles or wheezing. Abd: soft, non-tender, non-distended. BS+ in all 4 quadrants. MSK: Good ROM in BUE & BLE. No edema or rash. Neuro: CN II-XII grossly intact. Strength 5/5 in BUE & BLE. Alert and oriented x3. Psych: appropriate mood and affect. Quality Measures Quality Measures VTE prophylaxis Advance care planning discussed with:: patient Medications Home Medications and Allergies Home Medications ?Medication ?Instructions ?Recorded ?Confirmed ?Type amlodipine 5 mg-olmesartan 20 mg 1 tab PO QDAY 08/27/20 12/10/24 History tablet calcitriol 0.25 mcg capsule 0.25 mcg PO QDAY 08/27/20 12/10/24 History levothyroxine 150 mcg tablet 150 mcg PO DAILY 08/27/20 12/10/24 History (Synthroid) tamsulosin 0.4 mg capsule 0.4 mg PO DAILY 08/27/20 12/10/24 History rosuvastatin 5 mg tablet 5 mg PO QDAY 07/07/21 12/10/24 History Allergies Allergy/AdvReac Type Severity Reaction Status Date / Time No Known Allergies Allergy Unverified 12/09/24 18:41 Visit Medications Acetaminophen (Acetaminophen 325 Mg Tablet) 650 mg PO Q6H PRN PRN Reason: Fever >100.4 or pain Stop: 01/08/25 21:05 Calcitriol (Calcitriol 0.25 Mcg Capsule) 0.25 mcg PO QDAY [facility] Stop: 01/09/25 08:59 Docusate Sodium (Docusate Sod 100 Mg Capsule) 100 mg PO QDAY [facility]; Protocol Stop: 01/09/25 08:59 Levothyroxine Sodium (Levothyroxine Sodium 25 Mcg Tablet) 150 mcg PO DAILY [facility] Stop: 01/09/25 08:59 Non-Formulary Medication (Amlodipine-Olmesartan) 2 tab PO QDAY [facility] Stop: 01/09/25 08:59 Non-Formulary Medication (Rosuvastatin) 5 mg PO QDAY [facility] Stop: 01/09/25 08:59 Ondansetron HCl (Ondansetron Inj 2 Mg/Ml Inj 2 Ml) 4 mg IVP Q6H PRN; Protocol PRN Reason: NAUSEA OR VOMITING Stop: 01/08/25 21:05 Sennosides (Senna Tablet) 1 tab PO QDAY PRN; Protocol PRN Reason: constipation Stop: 01/08/25 21:05 Tamsulosin HCl (Tamsulosin Hcl 0.4 Mg Capsule) 0.4 mg PO DAILY [facility] Stop: 01/09/25 08:59 Assessment & Plan Plan 79 y/o M with PMHx significant for hypothyroidism s/p thyroidectomy, prostate cancer s/p radiation treatment, hypertension, TAVR presented to ED with chief complaint of bradycardia, admitted for symptomatic bradycardia. #Symptomatic bradycardia secondary to AV block Patient presented with complaints of fatigue and 1 episode of dizziness associated with bradycardia, heart rate in the 40s. EKG showed bradycardia, AV block. Patient follows with wrestling coach Dr. Epps, consulted. Plan for possible pacemaker. Patient currently hemodynamically stable. - Telemonitoring - Hold home amlodipine - Transcutaneous pacing - N.p.o. after midnight - Cardiology consulted, appreciate recommendations #Hypothyroidism s/p thyroidectomy Patient reports receiving multiple thyroid surgeries due to genetic defect , ending with complete thyroidectomy. Takes Synthroid at home. - TSH ordered - Resume home med: Synthroid 150 mcg daily #Hypertension Patient history as stated. - hold home meds: Amlodipine?olmesartan 10?40 DVT prophylaxis: SCDs GI prophylaxis: None Diet: Cardiac, n.p.o. after midnight Lines: Peripheral IV Code status: Full code Plan of care discussed with attending Dr. Nixon. Broderick Cohen MD PGY-2 Attending Provider Attestation/Addendum Attending Provider Attestation/Addendum After examination of the patient and review of the clinical data I feel that this patient needs admission to the hospital for further treatment/evaluation. I Maddison Nixon MD, attest that I was physically present for ordonez portions of evaluation, and examined patient, labs and imagings and plan of care were discussed with IM residents team, and I agree with the findings and plans documented above.
[2024-12-09 23:26] VITALS: BP 110/54; PULSE 40; RESP 17; TEMP 36.7; O2SAT 95
--- NOTE | 2024-12-09 23:44 | PC.NURSE ---
Report called to floor nurse FLOR Tuttle at this time
[2024-12-10] VITALS (17 sets, daily range): BP systolic 117–168; BP diastolic 61–88; PULSE 38–97; RESP 15–20; TEMP 36.1–37.1; O2SAT 93–97; BMI 31.5
[2024-12-10 05:47] LABS: Basophils # (Auto) 0.0 Thou/mm3 (0.0-0.2); Basophils % (Auto) 0 % (0-2.5); Eosinophils # (Auto) 0.1 Thou/mm3 (0.0-0.5); Eosinophils % (Auto) 2 % (0-10); Hematocrit 41.4 % (41.0-53.0); Hemoglobin 13.7 g/dL (13.5-16.0); Immature Granulocytes Auto 0.03 Thou/mm3 (0.00-0.00); Lymphocytes # (Auto) 2.3 Thou/mm3 (1.0-4.8); Lymphocytes % (Auto) 32 % (10-50); Mean Corpuscular HGB Conc 33.1 g/dl (31.0-37.0); Mean Corpuscular Hemoglobin 32.1 pg (25.0-35.0); Mean Corpuscular Volume 97 fL (80-100); Monocytes # (Auto) 0.6 Thou/mm3 (0.0-0.8); Monocytes % (Auto) 8 % (0-12); Neutrophils # (Auto) 4.1 Thou/mm3 (1.8-7.7); Neutrophils % (Auto) 57 % (37-80); Nucleated Red Blood Cell # 0.00 Thou/mm3 (0.00-0.00); Nucleated Red Blood Cell % 0 /100 WBC (0); Platelet Count 249 Thou/mm3 (140-440); RDW Standard Deviation 45.6 fL (35.1-43.9); Red Blood Count 4.27 Miln/mm3 (4.50-5.90); White Blood Count 7.2 Thou/mm3 (3.8-10.6)
[2024-12-10 06:06] LABS: INR 1.1 (0.9-1.3); Partial Thromboplastin Time 28.3 Seconds (22.0-36.0); Prothrombin Time 11.5 Seconds (9.0-12.2)
--- NOTE | 2024-12-10 06:36 | EKG_ITS ---
[facility] Test Date: 2024-12-10 Pat Name: EVY CARPENTER Department: Room: S262A Gender: Male Through Operator: RACHEL : 1945 Requested By: Katelin Orlando Order Number: [id number] Reading MD: Katelin Orlando Measurements Intervals [place] Rate: 40 P: [place]: QRS: -29 QRSD: 118 T: 23 QT: 543 QTc: 447 Interpretive Statements SUPRAVENTRICULAR BRADYCARDIA ANTEROSEPTAL MYOCARDIAL INFARCTION , PROBABLY OLD Compared to ECG 12/09/2024 19:06:30 Atrial fibrillation no longer present Left-axis deviation no longer present Myocardial infarct finding still present /store/S0/[id number]/[id number].pdf
[2024-12-10 06:37] LABS: Alanine Aminotransferase 45 U/L (10-49); Albumin, Serum 3.8 gm/dL (3.4-4.8); Albumin/Globulin Ratio 1.9 (1.2-2.2); Alkaline Phosphatase 75 U/L (46-116); Anion Gap 11 (7-16); Aspartate Amino Transferase 40 U/L (0-34); BUN/Creatinine Ratio 17 Ratio (12-20); Bilirubin,Total 0.9 mg/dL (0.3-1.2); Blood Urea Nitrogen 20 mg/dL (9-23); Calcium 7.8 mg/dL (8.3-10.6); Calcium (Corrected) 8.0 mg/dL (8.5-10.1); Carbon Dioxide 25.0 mMol/L (20.0-31.0); Chloride 108 mMol/L (98-107); Creatinine (Component) 1.2 mg/dL (0.6-1.3); Estimated Creatinine Clearance 65.5 mL/min (>60); Globulin 2.0 gm/dL (2.3-3.5); Glucose 101 mg/dL (74-106); Magnesium 2.0 mg/dL (1.6-2.6); Osmolality,Calculated 289 (275-295); Phosphorous 4.6 mg/dL (2.4-5.1); Potassium 3.5 mMol/L (3.4-5.1); Sodium 144 mMol/L (136-145); Thyroid Stimulating Hormone 5.53 uIU/mL (0.55-4.78); Total Protein 5.8 gm/dL (5.7-8.2); eGFR > 60 See Note
--- NOTE | 2024-12-10 07:40 | EKG_ITS ---
[facility] Test Date: 2024-12-10 Pat Name: EVY CARPENTER [facility]: Male Drawer In Jacquard Loom: RACHEL : 1945 Requested By: Risa Fairchild Order Number: [id number] Reading MD: Risa Fairchild Measurements Intervals [place] Rate: 41 P: [place]: QRS: -30 QRSD: 112 T: 19 QT: 564 QTc: 468 Interpretive Statements SUPRAVENTRICULAR BRADYCARDIA SEPTAL MYOCARDIAL INFARCTION , PROBABLY OLD Compared to ECG 12/10/2024 07:01:38 No significant changes /store/S0/[id number]/[id number].pdf
--- NOTE | 2024-12-10 07:42 | PC.NURSE ---
Sought clarification of place pacer pads order from credit charge authorizer and MD. This order will require transfer to ICU. Dr Fairchild at bedside to assess pt, another stat ekg ordered before decision is made. RT Caty notified of order.
[2024-12-10 07:48] LABS: Free T4 (Free Thyroxine) 1.48 ng/dL (0.89-1.76); Troponin I 0.021 ng/mL (0.0-0.045)
--- NOTE | 2024-12-10 07:48 | PC.NURSE ---
RT Caty in for EKG
--- NOTE | 2024-12-10 08:00 | PC.NURSE ---
EKG uploaded to chart. Dr Fairchild notified
--- NOTE | 2024-12-10 08:34 | PC.NURSE ---
Spoke with MD regarding plan, Hospitalist team still to confer with cardiology regarding plan. Pt has Cardiac diet ordered with old NPO after MN completed order, requested clarification. Per MD, keep pt NPO for now except meds in the event that Cardiology wants to take patient for procedure today. Pt notified and has not eaten breakfast.
[2024-12-10] MEDS: DOCUSATE SOD 100 MG CAPSULE PO (08:48)
[2024-12-10] MEDS: POTASSIUM CHLORIDE 10% 20 MEQ/15 ML UDC 40 MEQ PO (08:49)
[2024-12-10] MEDS: TAMSULOSIN HCL 0.4 MG CAPSULE PO (08:49)
[2024-12-10] MEDS: ASPIRIN EC 81 MG TABEC PO (08:49)
--- NOTE | 2024-12-10 10:30 | PC.NURSE ---
Dr Epps in to assess pt. Discussed pacemaker implantation at 1200. Orders for consent placed.
--- NOTE | 2024-12-10 10:38 | PC.NURSE ---
Dr Fairchild made aware of Dr Epps's plans for procedure at 1200, no need to ICU and taller t waves. Pt is asymptomatic, no new orders at this time.
--- NOTE | 2024-12-10 11:18 | XR_ITS ---
Examination: Chest AP portable 2 views Fluoroscopy Date and time: December 10, 2024, 0148 hrs. Indications: Cardiac pacemaker insertion Technique And Findings: 2 spot fluoroscopic chest films demonstrate satisfactory position cardiac leads No pneumothorax Fluoroscopy 4.26 minutes, radiation dose 72.63 milligray Impression: Cardiac leads satisfactory position
--- NOTE | 2024-12-10 12:00 | PC.NURSE ---
pt to laborer driver for pacemaker placement
--- NOTE | 2024-12-10 13:34 | XR_ITS ---
Examination: AP chest single view Technique: AP portable semiupright chest single view Date and time: December 10, 2024, 1358 hrs., Comparison December 09, 2024 Indications: Post cardiac pacemaker placement today. Findings: Transvenous dual-chamber bipolar cardiac leads satisfactory position Mild enlargement left ventricle. No pneumothorax. The osseous structures are intact. Impression: Cardiac leads satisfactory position
--- NOTE | 2024-12-10 13:36 | SUR.PHASEI ---
pt received from OR in recovery bay 1. pt awake and alert, breathing unlabored on oxymask 4l. v/s stable. pt dressing to left upper chest cdi. report received from Orestes RAY and Dr. Shelton.
--- NOTE | 2024-12-10 14:19 | SUR.PHASEI ---
pt awake and alert, breathing unlabored on room air. v/s stable. pt dressing to left upper chest cdi. report called to Teddy Fritz. pt will be transferred to room at this time.
--- NOTE | 2024-12-10 14:23 | PC.NURSE ---
Pt to room from cathlab stable vitals, dressing to left chest CDI, no signs of distress
--- NOTE | 2024-12-10 14:56 | ESOP_ITS ---
RE: EVY CARPENTER : 1945 DATE OF OPERATION: 12/10/2024 PROCEDURES PERFORMED: Implantation of dual chamber AV sequential permanent pacemaker, CPT 55108. PREOPERATIVE DIAGNOSES: Complete heart block, third-degree atrioventricular block, symptomatic bradycardia with dizziness, and near syncope. POSTOPERATIVE DIAGNOSIS: Successful implantation of dual-chamber atrioventricular sequential permanent pacemaker by [employer]. COMPLICATIONS: None. ESTIMATED BLOOD LOSS: 0. HISTORY AND INDICATIONS: The patient is a 79-year-old male with a history of transcutaneous aortic valve replacement, TAVR procedure in 2021, hypertension, and hypothyroidism, doing well until yesterday. The patient presented to the emergency room with a bradycardia rate of 40 initially presented with a 2:1 block. He returned to the hospital with severe symptomatic bradycardia. At this time, he is in complete heart block, heart rate of 38 beats per minute, atrial rate about 90, ventricular rate about 38-40 beats per minute with junctional escape. Because of symptomatic bradycardia, third-degree heart block, and known history of patient with aortic valve replacement and conduction block with no reversible causes, a dual-chamber AV sequential permanent pacemaker implantation is recommended, class 1 indication for device implantation. ANESTHESIA: Conscious sedation under monitored anesthesia by an anesthesiologist. DESCRIPTION OF PROCEDURE: The patient was brought to the operating room. Informed consent was obtained. Anesthesia was given as conscious sedation. A combination of low- dose propofol and Versed, proceeded with local anesthesia. The left subclavian area was prepared in a sterile fashion and given 1% lidocaine as local anesthesia. The left subclavian vein was cannulated with micropuncture technique. Two guide-wires were introduced. A linear incision was made with blunt dissection and pocket was created. Hemostasis was secured. Atrial and ventricular active fixation [employer] 45 and 52 cm leads were advanced to the atrial appendage in the right atrium and right ventricle septal apex and excellent thresholds were obtained. After obtaining a satisfactory threshold, the leads were anchored to the pectoral fascia with 2-0 silk suture. Antibiotic was used to cleanse the pocket and the leads were attached to the dual-chamber pacemaker generator, an MRI safe device, and the device was then placed in the pocket and subcutaneous tissue was closed using 2-0 chromic suture. Skin was closed using ju. The patient tolerated the operation well. No complications. The device details are as follows: The device implanted is MRI safe, [employer], model number L311, serial number is [id number]. The atrial lead is 45 cm, model number is 7840 by [employer], serial number is [id number]. The ventricular lead is model number 7841, serial number is [id number]. The thresholds are as follows: Atrial: P waves are sensing at 4 mV, R waves are sensing at 9 mV. Threshold in atrium 0.8 V, ventricle 0.8 V. Lead impedance: Atrium 676, ventricle 931. The pacemaker is programmed to DDD, dual-chamber mode, 60 lower rate limit, upper max tracking rate 130. SUMMARY OF FINDINGS: Successful implantation of AV sequential dual-chamber permanent pacemaker. No complications during the operation. DT: 13:43:23 TT: 14:54:00 Ref: [id number] - TID: [id number]
--- NOTE | 2024-12-10 15:24 | ESPR_ITS ---
<Statement entered by Risa Fairchild MD - 12/10/24 16:19> Patient was seen and examined at bedside, patient came with symptomatic bradycardia, reported generalized fatigability, decreased exercise tolerance and low blood pressure. He underwent pacemaker placement today by Dr. Epps, tolerated the procedure well, chest x-ray confirmed leads in satisfactory position, patient was prescribed Keflex 500 mg twice daily by Dr. Epps to complete 7 days. He was given also 1 dose of vancomycin by Dr. Epps, and also he recommended to hold aspirin for 7 days. Patient will be discharged tomorrow if no new symptoms. Has to follow-up with Dr. Epps within 1 week to remove ju. - Patient's plan and care discussed with my attending, Dr. Tanisha Fairchild MD Internal Medicine PGY-3 Documentation for date of: 12/10/24 Subjective Subjective Interval history: No acute events overnight. Patient seen and examined at bedside. Vitals and labs reviewed, notable for bradycardia. Patient denies any complaints/concerns. Patient denies fever, fatigue, chest pain, palpitations, weakness, shortness of breath Exam Vital Signs Temp Pulse Resp BP Pulse Ox O2 Del Method O2 Flow Rate 98.2 F 69 19 142/82 H 94 L Room Air 4 12/10/24 14:15 12/10/24 14:23 12/10/24 14:15 12/10/24 14:15 12/10/24 14:15 12/10/24 12:00 12/10/24 13:36 Narrative Exam General: No acute distress; A&Ox3 Skin: Warm, dry, intact, no obvious rash. HENT: NCAT, EOMI, not icteric. External ears normal. No rhinorrhea. Moist mucous membranes Cardiovascular: Regular rate and rhythm, no murmur, +S1/S2. Respiratory: Lungs CTAB GI: Soft, nontender, non-distended. No guarding or rebound tenderness. Extremities: RLE mild edema. no cyanosis, no clubbing. Extremity pulses present Neuro: No focal deficits observed. Conversant, moving all extremities. No overt cerebellar signs/incoordination. Psychiatric: Cooperative, appropriate affect. Objective Labs 12/10/24 05:13 12/10/24 05:13 Labs: Laboratory Results - last 24 hr 12/10/24 05:13 WBC 7.2 RBC 4.27 L Hgb 13.7 Hct 41.4 MCV 97 MCH 32.1 MCHC 33.1 RDW Std Deviation 45.6 H Plt Count 249 Neut % (Auto) 57 Lymph % (Auto) 32 Hendry % (Auto) 8 Eos % (Auto) 2 Baso % (Auto) 0 Neut # (Auto) 4.1 Lymph # (Auto) 2.3 Hendry # (Auto) 0.6 Eos # (Auto) 0.1 Baso # (Auto) 0.0 Immature Gran # (Auto) 0.03 H Absolute Nucleated RBC 0.00 Immature Gran % 0 Nucleated RBC % 0 PT 11.5 INR 1.1 APTT 28.3 Sodium 144 Potassium 3.5 Chloride 108 H Carbon Dioxide 25.0 Anion Gap 11 BUN 20 Creatinine 1.2 Estim Creat Clear Calc 65.5 eGFR > 60 BUN/Creatinine Ratio 17 Glucose 101 Calculated Osmolality 289 Calcium 7.8 L Corrected Calcium 8.0 L Phosphorus 4.6 Magnesium 2.0 Total Bilirubin 0.9 AST 40 H ALT 45 Alkaline Phosphatase 75 Troponin I 0.021 Total Protein 5.8 Albumin 3.8 D Globulin 2.0 L Albumin/Globulin Ratio 1.9 TSH 5.53 H Free T4 1.48 Quality Measures Quality Measures VTE prophylaxis Advance care planning discussed with:: patient Assessment & Plan Assessment Current Active Medications: Generic Name Dose Route Start Last Admin Trade Name Freq PRN Reason Stop Dose Admin Acetaminophen 650 mg 12/09/24 21:06 Acetaminophen 325 Mg Tablet PO 01/08/25 21:05 Q6H PRN Fever >100.4 or pain Atorvastatin Calcium 20 mg 12/10/24 21:00 Atorvastatin Calcium 20 Mg Tablet PO 01/09/25 20:59 HS ARACELIS Protocol Calcitriol 0.25 mcg 12/10/24 09:00 12/10/24 08:49 Calcitriol 0.25 Mcg Capsule PO 01/09/25 08:59 0.25 mcg QDAY ARACELIS Administration Cephalexin HCl 500 mg 12/10/24 21:00 Cephalexin 250 Mg Capsule PO 12/17/24 20:59 BID ARACELIS Docusate Sodium 100 mg 12/10/24 09:00 12/10/24 08:48 Docusate Sod 100 Mg Capsule PO 01/09/25 08:59 100 mg QDAY ARACELIS Administration Protocol Acetaminophen 1,000 mg in 100 mls @ 250 mls/hr 12/10/24 14:53 Ofirmev Inj IV Q6HR PRN PAIN 1-3 Levothyroxine Sodium 125 mcg/ 150 mcg 12/10/24 11:00 12/10/24 11:00 Levothyroxine Sodium 25 mcg PO 01/09/25 10:59 Not Given ACBR ARACELIS Ondansetron HCl 4 mg 12/09/24 21:06 Ondansetron Inj 2 Mg/Ml Inj 2 Ml IVP 01/08/25 21:05 Q6H PRN NAUSEA OR VOMITING Protocol Sennosides 1 tab 12/09/24 21:06 Senna Tablet PO 01/08/25 21:05 QDAY PRN constipation Protocol Tamsulosin HCl 0.4 mg 12/10/24 09:00 12/10/24 08:49 Tamsulosin Hcl 0.4 Mg Capsule PO 01/09/25 08:59 0.4 mg DAILY ARACELIS Administration Plan 79 y/o M with PMHx significant for hypothyroidism s/p thyroidectomy, prostate cancer s/p radiation treatment, hypertension, TAVR presented to ED with chief complaint of bradycardia, admitted for symptomatic bradycardia. #Symptomatic bradycardia secondary to 3rd Degree AV block #hx of aortic stenosis s/p TAVR Patient presented with complaints of fatigue and 1 episode of dizziness associated with bradycardia, heart rate in the 40s on admission. Also initially, EKG showed AV block. Patient follows with cnc specialist Dr. Epps, consulted. S/P TAVR for severe calcific aortic stenosis. Patient currently hemodynamically stable. Patient found to have 3rd degree AV block on ekg 12/10/2024 ICU/Cardiology recommended no ICU upgrade 12/10/2024: Successful implantation of dual-chamber atrioventricular sequential permanent pacemaker by [email or web address]. - Telemonitoring - Cardiology recommends: * DC in AM * On Keflex 500 BID 1 week * See Dr. Epps in 1 week for staple removal * Hold aspirin 7 days * Resume all other home meds #Hypothyroidism s/p thyroidectomy #Hypocalcemia secondary to thyroidectomy Patient reports receiving multiple thyroid surgeries due to genetic defect , ending with complete thyroidectomy. Takes Synthroid at home. TSH 5.53, Free T4 1.48 Plan - Resume home calcitriol 0.25 p.o. daily - Start the patient on calcium carbonate 600 mg p.o. - Start the patient on vitamin D3 1000 international units daily - Resumed home med: Synthroid 150 mcg daily #Hypertension Patient history as stated. -Will restart Amlodipine?olmesartan 10?40 #prostate cancer s/p radiation treatment -Patient to continue to follow up with PCP. DVT prophylaxis: SCDs GI prophylaxis: None Diet: Cardiac: Cardiac diet Lines: Peripheral IV Code status: Full code Patient plan of care was discussed with the attending physician, Dr. Garay and senior resident Dr. Devorah Winn MD PGY-1 Attending Provider Attestation/Addendum I, Naida Garay, DO, attest that I was physically present for the ordonez portions of the service and evaluated the patient with the resident and I reviewed and discussed the case with the resident and agree with the resident's findings and plans of care as documented above Patient seen eval this a.m. Patient not states that he was at the gym yesterday when he had felt very weak and dizzy. Patient regularly exercises and golfs, but was unusually fatigued yesterday. Patient came to the ED during which he was cleared and discharged home as his bradycardia appeared to have resolved while in the ED. However, upon returning home, patient continued to feel dizzy and very weak prompting him to come back to the ER. Patient continued to have bradycardia in the 40s. Upon evaluation this morning, an EKG was repeated due to concern for persistent bradycardia. However, patient denied any symptoms and states that he is feeling improved. He denied any chest pain, shortness of breath or syncope over the course of his symptoms. However, patient remains in the 40s. He denies taking any beta-blockers. Electrolytes appear within normal limits. Repeat EKG appears to show third-degree heart block. Patient does not take any blood thinners. ICU was consulted for closer monitoring, but patient has been stable otherwise. Will place pacer pads on. Plan for pacemaker placement at noon today. Will keep patient n.p.o. at this time.
[2024-12-10] MEDS: AMLODIPINE OLMESARTAN PO (18:26)
[2024-12-10] MEDS: [UNRECOGNIZED DRUG - OTHER] PO (20:07)
[2024-12-10] MEDS: ACETAMINOPHEN 325 MG TABLET 650 MG PO (20:08)
[2024-12-11] VITALS (7 sets, daily range): BP systolic 154–176; BP diastolic 79–95; PULSE 61–100; RESP 11–17; TEMP 35.9–36.7; O2SAT 91–97; BMI 32.3
[2024-12-11] MEDS: LEVOTHYROXINE SODIUM 125 MCG, LEVOTHYROXINE SODIUM 25 MCG 150 MCG PO (05:09)
[2024-12-11 06:25] LABS: Basophils # (Auto) 0.0 Thou/mm3 (0.0-0.2); Basophils % (Auto) 0 % (0-2.5); Eosinophils # (Auto) 0.1 Thou/mm3 (0.0-0.5); Eosinophils % (Auto) 2 % (0-10); Hematocrit 44.3 % (41.0-53.0); Hemoglobin 14.6 g/dL (13.5-16.0); Immature Granulocytes Auto 0.02 Thou/mm3 (0.00-0.00); Lymphocytes # (Auto) 1.6 Thou/mm3 (1.0-4.8); Lymphocytes % (Auto) 22 % (10-50); Mean Corpuscular HGB Conc 33.0 g/dl (31.0-37.0); Mean Corpuscular Hemoglobin 32.4 pg (25.0-35.0); Mean Corpuscular Volume 98 fL (80-100); Monocytes # (Auto) 0.6 Thou/mm3 (0.0-0.8); Monocytes % (Auto) 8 % (0-12); Neutrophils # (Auto) 5.0 Thou/mm3 (1.8-7.7); Neutrophils % (Auto) 68 % (37-80); Nucleated Red Blood Cell # 0.00 Thou/mm3 (0.00-0.00); Nucleated Red Blood Cell % 0 /100 WBC (0); Platelet Count 231 Thou/mm3 (140-440); RDW Standard Deviation 45.8 fL (35.1-43.9); Red Blood Count 4.51 Miln/mm3 (4.50-5.90); White Blood Count 7.4 Thou/mm3 (3.8-10.6)
[2024-12-11 06:45] LABS: Alanine Aminotransferase 35 U/L (10-49); Albumin, Serum 3.9 gm/dL (3.4-4.8); Albumin/Globulin Ratio 1.9 (1.2-2.2); Alkaline Phosphatase 77 U/L (46-116); Anion Gap 12 (7-16); Aspartate Amino Transferase 33 U/L (0-34); BUN/Creatinine Ratio 15 Ratio (12-20); Bilirubin,Total 0.7 mg/dL (0.3-1.2); Blood Urea Nitrogen 16 mg/dL (9-23); Calcium 7.7 mg/dL (8.3-10.6); Calcium (Corrected) 7.8 mg/dL (8.5-10.1); Carbon Dioxide 24.3 mMol/L (20.0-31.0); Chloride 107 mMol/L (98-107); Creatinine (Component) 1.1 mg/dL (0.6-1.3); Estimated Creatinine Clearance 72.3 mL/min (>60); Globulin 2.1 gm/dL (2.3-3.5); Glucose 98 mg/dL (74-106); Magnesium 1.9 mg/dL (1.6-2.6); Osmolality,Calculated 286 (275-295); Phosphorous 4.5 mg/dL (2.4-5.1); Potassium 3.7 mMol/L (3.4-5.1); Sodium 143 mMol/L (136-145); Total Protein 6.0 gm/dL (5.7-8.2); eGFR > 60 See Note
[2024-12-11] MEDS: AMLODIPINE OLMESARTAN PO (09:01)
[2024-12-11] MEDS: TAMSULOSIN HCL 0.4 MG CAPSULE PO (09:02)
[2024-12-11] MEDS: DOCUSATE SOD 100 MG CAPSULE PO (09:03)
[2024-12-11] MEDS: CALCIUM CARBONATE 600 MG TABLET PO (09:05)
[2024-12-11] MEDS: POTASSIUM CHLORIDE 10% 20 MEQ/15 ML UDC 40 MEQ GT (09:09)
[2024-12-11] MEDS: [UNRECOGNIZED DRUG - OTHER] PO (09:10)
--- NOTE | 2024-12-11 11:35 | PC.NURSE ---
Pt BP 169/91 HR 74; aware with new order for Hydralazine and recheck in 1 hour. Pt refused medication and ready to go home. Dr. Fairchild notified and okay to discharge.
--- NOTE | 2024-12-11 12:08 | PC.SS ---
RECORDING STUDIO INTERN conducted bedside contact with the patient conduct initial assessment and to discuss discharge planning.? Patient confirmed demographic information.? Patient resides at home with spouse, Maria Del Carmen Centeno .? Patient does not utilize any form of DME to assist with ambulation.? Patient does not utilize home oxygen.? Patient does utilize a C-PAP for night time use.? Patient describes the ability to complete ADL?s independently.? Patient identified spouse, Maria Del Carmen Centeno; as medical surrogate decision maker.? Patient?s PCP is Dr. Shipley.? Patient does not participate with dialysis.? Patient?s bottomer operator is Dr. Escalona.? Plan is for the patient to return home at the time of discharge.? Family will provide transportation on behalf of the patient. ?No further discharge needs identified by the patient.? No further intervention required at this time, social work msw will be available to address any further concerns.? Next of Kin: Maria Del Carmen Centeno D/C Plan: Home
--- NOTE | 2024-12-11 17:36 | PD.RESDS ---
Planned Discharge Date 12/11/24 DS: Providers Provider Date of admission: 12/09/24 21:06 Primary care physician: Sari Shipley MD Admitting Provider: Maddison Nixon MD Attending Provider on Admission: Maddison Nixon MD Consults: 12/09/24 19:33 Consult to Cardiology Stat Comment: Symptomatic bradycardia Consulting Provider: Sofia Epps Attending Provider on DC: MD Jaskaran Discharging Provider: Risa Fairchild MD DS: Diagnosis Problem List Completed Was Problem List Reviewed/Reconciled?: Yes Hospital Course Hospital Course Hospital course: A 79-year-old male patient with past medical history of hypothyroidism secondary to thyroidectomy, prostate cancer status post radiation, hypertension, aortic stenosis status post TAVR placement, presented to the ED due to increased fatigability with exertion and low blood pressure noticed while he was measuring his blood pressure at home. He noticed also that his heart rate was in the 50s. On presentation patient was found to have heart rate of 40s, EKG initially showed secondary heart block however it progressed to third-degree heart block. Cardiology consultation was ordered, Dr. Epps the square cutter recommended pacemaker placement which was performed on December 10, 2024. As per the operative report The device details are as follows: The device implanted is MRI safe, [employer], model number L311, serial number is [id number]. The atrial lead is 45 cm, model number is 7840 by [employer], serial number is [id number]. Patient was given vancomycin single dose, and was discharged on Keflex for 7 days. Patient was instructed to return to the ED in case of worsening of his symptoms. Patient deemed to be clinically stable for discharge and was given the following instructions : Follow up within one week with your PCP Follow up with the square cutter Dr Epps after one week from discharge to remove ju Resume Your Aspirin after 7 days from discharge Use antibiotics Keflex for total of 7 days from discharge In case of worsening of your symptoms please return to the ED as soon as possible Keep the wound dry and cleen Discharging diagnosis #Third-degree heart block status post pacemaker placement #History of hypothyroidism status post thyroidectomy #History of hypertension #History of prostate cancer status post radiation #History of aortic stenosis status post TAVR - Patient's plan and care discussed with my attending, Dr. Jaskaran Fairchild MD Internal Medicine PGY-3 Time Spent with Patient Time attestation: Total time spent providing and/or coordinating discharge services: Time spent: Greater than 30 minutes Exam Vital Signs Temp Pulse Resp BP Pulse Ox O2 Del Method O2 Flow Rate 96.9 F 74 16 169/91 H 97 Room Air 4 12/11/24 11:30 12/11/24 11:30 12/11/24 11:30 12/11/24 11:30 12/11/24 11:30 12/11/24 11:30 12/10/24 13:36 Narrative Exam GEN: AOx3, able to speak full sentences HEENT: NC/AC, PERRLA, oral mucosa moist, neck supple CVS: Surgical scar covered, no bleeding, no visible discharge. RRR, S1-S2 present, no murmurs appreciated RESP: CTAB GI: soft,non distended, non tender, NBS MSK: able to move all 4 limbs, no lower extremity edema SKIN: warm and dry ACUTE CARE CLINICAL NURSE SPECIALIST: CN II-XII and Sensation grossly intact. Discharge Plan Plan Patient Disposition: HOME (Self Care) Patient condition on transfer: Stable Care Plan Goals: Follow up within one week with your PCP Follow up with the square cutter Dr Epps after one week from discharge to remove ju Resume Your Aspirin after 7 days from discharge Use antibiotics Keflex for total of 7 days from discharge In case of worsening of your symptoms please return to the ED as soon as possible Keep the wound dry and cleen Prescriptions/Referrals Prescriptions/Med Rec: New cephalexin 500 mg capsule 500 mg PO BID 7 Days Qty: 14 0RF Continued tamsulosin 0.4 mg capsule 0.4 mg PO DAILY levothyroxine [Synthroid] 150 mcg tablet 150 mcg PO DAILY amlodipine-olmesartan 5-20 mg Tablet 1 tab PO QDAY calcitriol 0.25 mcg Capsule 0.25 mcg PO QDAY calcium citrate-vitamin D3 [Citracal + D Maximum] 315 mg-6.25 mcg (250 unit) tablet 4 tab PO QAM calcium citrate-vitamin D3 [Citracal + D Maximum] 315 mg-6.25 mcg (250 unit) tablet 3 tab PO QAM Leqvio 284 mg/1.5 mL syringe 284 mg subcut .[id number] Changed tadalafil 5 mg tablet 5 mg PO QDAY PRN (Reason: ED) 5 Days Qty: 0 0RF Patient Comments: TAKE 1 TABLET BY MOUTH ONCE EVERY DAY Referrals: Sofia Epps MD [Physician] - Sari Shipley MD [Primary Care Provider] - Patient/Caregiver Discharge Instructions Discharge Activity: activity as tolerated Education Materials: Calcium Channel Blockers Dc, Understanding Bradycardia Print Language: Northern Irish Stand Alone Forms: Quin Award Info., Patient Portal Info Letter Discharge Order Discharge Orders: Discharge (Routine); Ordered 12/11/24 Ordered By: Risa Fairchild Quality Discharge Quality Measures VTE prophylaxis (Contraindicated) MD Attestestation MD Attestation I have discussed and was present for the essential components of the discharge history, physical examination, diagnosis, and discharge treatment plan with the resident. I agree with the patient's discharge care as documented by the resident and amended herein by me. Ryne Jessica DO. The patient understood all discharge instructions, all questions were answered satisfactorily. The patient was instructed to return to the Emergency Department is symptoms worsened or persisted. Patient is stable, afebrile at time of discharge Although this document has been carefully reviewed, there may still be some phonetic and other typographical errors. These errors are purely grammatical due to imperfections in the software program and should not be construed in any way to compromise the substance of the patient's medical care during this visit.
== END 2024-12-11 11:42 | disposition home or self-care (01) | DRG 244 ==
LOC: SERX 19:43 → SERHOLD 21:52 → S2NX 23:55
PROVIDERS: Internal Medicine Cardiovascular Disease; Admitting Provider Student in an Organized Health Care Education/Training Program; Emergency Provider Emergency Medicine; PCP Internal Medicine; Visit Provider Student in an Organized Health Care Education/Training Program
PROC: 0JH606Z Insertion of Pacemaker, Dual Chamber into Chest Subcutaneous Tissue and Fascia, Open Approach (ICD-10-PCS; principal; 2024-12-10 12:00)
DX: I44.2 Atrioventricular block, complete (principal); R00.1 Bradycardia, unspecified; I10 Essential (primary) hypertension; E89.0 Postprocedural hypothyroidism; Z95.2 Presence of prosthetic heart valve; E83.51 Hypocalcemia; Z92.3 Personal history of irradiation; C61 Malignant neoplasm of prostate; Z79.890 Hormone replacement therapy; Z96.642 Presence of left artificial hip joint; I35.0 Nonrheumatic aortic (valve) stenosis
CPT/HCPCS: 36415; 71045; 76000; 80053; 83735; 84100; 84439; 84443; 84484; 85025; 85610; 85730; 93005; 99284; A4217; A4649; C1785; C1894; C1898; J2250; J2704; J3373; J3490; J7050; A9270

== ENCOUNTER → 2025-01-18 | Outpatient (CLI) | payer MEDICARE, BC, SELFPAY ==
[2025-01-18 12:15] LABS: Collection Type, Urine Clean Catch
[2025-01-18 12:29] LABS: Basophils # (Auto) 0.0 Thou/mm3 (0.0-0.2); Basophils % (Auto) 0 % (0-2.5); Eosinophils # (Auto) 0.1 Thou/mm3 (0.0-0.5); Eosinophils % (Auto) 2 % (0-10); Hematocrit 44.1 % (41.0-53.0); Hemoglobin 14.9 g/dL (13.5-16.0); Immature Granulocytes Auto 0.01 Thou/mm3 (0.00-0.00); Lymphocytes # (Auto) 2.4 Thou/mm3 (1.0-4.8); Lymphocytes % (Auto) 32 % (10-50); Mean Corpuscular HGB Conc 33.8 g/dl (31.0-37.0); Mean Corpuscular Hemoglobin 32.5 pg (25.0-35.0); Mean Corpuscular Volume 96 fL (80-100); Monocytes # (Auto) 0.6 Thou/mm3 (0.0-0.8); Monocytes % (Auto) 8 % (0-12); Neutrophils # (Auto) 4.4 Thou/mm3 (1.8-7.7); Neutrophils % (Auto) 59 % (37-80); Nucleated Red Blood Cell # 0.00 Thou/mm3 (0.00-0.00); Nucleated Red Blood Cell % 0 /100 WBC (0); Platelet Count 272 Thou/mm3 (140-440); RDW Standard Deviation 43.8 fL (35.1-43.9); Red Blood Count 4.59 Miln/mm3 (4.50-5.90); White Blood Count 7.5 Thou/mm3 (3.8-10.6)
[2025-01-18 12:37] LABS: Bilirubin,Urine Negative (Negative); Blood,Urine Negative (Negative); Clarity,Urine Clear (Clear/Hazy); Color,Urine Yellow (Lt Yel-Yel); Glucose, Urine Negative (Negative); Ketones,Urine Negative (Negative); Leukocyte Esterase,Urine Negative (Negative); Nitrite,Urine Negative (Negative); PH,Urine 6.0 (5.0-7.0); Protein,Urine Trace (Neg - Trace); RBC,Urine 3 /hpf (0-3); Specific Gravity,Urine 1.025 (1.001-1.035); Squamous Epithelial Cell,Urine < 1 /hpf (0-5); Urobilinogen,Urine Negative mg/dL (0.0-1.0); WBC,Urine 1 /hpf (0-5)
[2025-01-18 12:58] LABS: Alanine Aminotransferase 13 U/L (10-49); Albumin, Serum 4.7 gm/dL (3.4-4.8); Albumin/Globulin Ratio 2.4 (1.2-2.2); Alkaline Phosphatase 80 U/L (46-116); Anion Gap 11 (7-16); Aspartate Amino Transferase 25 U/L (0-34); BUN/Creatinine Ratio 20 Ratio (12-20); Bilirubin,Total 0.8 mg/dL (0.3-1.2); Blood Urea Nitrogen 22 mg/dL (9-23); Calcium 9.5 mg/dL (8.3-10.6); Calcium (Corrected) 9.5 mg/dL (8.5-10.1); Carbon Dioxide 26.4 mMol/L (20.0-31.0); Cardiac Risk Estimate 3.2 RATIO (4.0-6.7); Chloride 106 mMol/L (98-107); Cholesterol 171 mg/dL (132-200); Creatinine (Component) 1.1 mg/dL (0.6-1.3); Free T4 (Free Thyroxine) 1.84 ng/dL (0.89-1.76); Globulin 2.0 gm/dL (2.3-3.5); Glucose 86 mg/dL (74-106); HDL Cholesterol 53 mg/dL (40-60); LDL Cholesterol,Calculated 91 mg/dL (0-130); Osmolality,Calculated 287 (275-295); Potassium 4.0 mMol/L (3.4-5.1); Sodium 143 mMol/L (136-145); Thyroid Stimulating Hormone 1.69 uIU/mL (0.55-4.78); Total Protein 6.7 gm/dL (5.7-8.2); Triglycerides 135 mg/dL (30-150); eGFR > 60 See Note
[2025-01-18 17:33] LABS: Parathyroid Hormone Intact 4.9 pg/ml (18.5-88.0)
== END | disposition home or self-care (01) ==
LOC: COPL 11:43
PROVIDERS: PCP Internal Medicine; Referring Provider Internal Medicine; Visit Provider Internal Medicine
DX: I10 Essential (primary) hypertension (principal); E78.5 Hyperlipidemia, unspecified; E20.9 Hypoparathyroidism, unspecified
CPT/HCPCS: 36415; 80053; 80061; 81001; 83970; 84439; 84443; 85025